=== PATIENT | female | born 1930 | race Caucasian/White ===

== ENCOUNTER 2017-08-24 10:55 | Outpatient (CLI) | payer MEDICARE, OTHER | END 2017-08-24 10:56 | disposition home or self-care (01) | LOC: BICRAD 10:55 | PROVIDERS: ATTEND Nurse Practitioner Family | DX: M25.572 Pain in left ankle and joints of left foot (principal); M19.072 Primary osteoarthritis, left ankle and foot ==

== ENCOUNTER 2017-08-27 14:39 | Outpatient (CLI) | payer MEDICARE, OTHER ==
--- NOTE | 2017-08-27 15:17 | ULT ---
LEFT LOWER EXTREMITY VENOUS ULTRASOUND WITH DOPPLER: Date: 08/27/17 HISTORY: Left leg pain. COMPARISON: None. TECHNIQUE: Denney scale, color flow, Doppler imaging, and spectral waveform analysis performed of the left lower e xtremity deep venous system. FINDINGS: There is compressibility, presence of flow, and augmentation in the common femoral, femoral vein, pop liteal vein, greater saphenous vein, profunda vein, and posterior tibial vein. IMPRESSION: No evidence of thrombus in the left lower extremity venous system. POS: [facility]
== END 2017-08-27 14:40 | disposition home or self-care (01) ==
LOC: EDBD → ULT 14:39
PROVIDERS: ATTEND Specialist
DX: M25.572 Pain in left ankle and joints of left foot (principal); M79.605 Pain in left leg

== ENCOUNTER 2017-10-15 15:57 | Outpatient (CLI) | payer MEDICARE, OTHER | END 2017-10-15 15:58 | disposition home or self-care (01) | LOC: BICRAD 15:57 | PROVIDERS: ATTEND Specialist | DX: M54.9 Dorsalgia, unspecified (principal); M19.90 Unspecified osteoarthritis, unspecified site; M47.896 Other spondylosis, lumbar region; M43.16 Spondylolisthesis, lumbar region | CPT/HCPCS: 72100 ==

== ENCOUNTER 2017-10-18 14:40 | Outpatient (CLI) | payer MEDICARE, OTHER | END 2017-10-18 14:41 | disposition home or self-care (01) | LOC: BICRAD 14:40 | PROVIDERS: ATTEND Nurse Practitioner Family | DX: M16.12 Unilateral primary osteoarthritis, left hip; M54.9 Dorsalgia, unspecified; M19.90 Unspecified osteoarthritis, unspecified site ==